=== PATIENT | female | born 1975 | race Caucasian/White ===

== ENCOUNTER 2017-06-29 16:59 | Emergency (ER) | payer OTHER ==
[~2017-06-29] VITALS: Ht 165.1 cm; Wt 59.0 kg
[~2017-06-29 16:59] MED LIST: SERO300T2 PO
[2017-06-29 17:26] VITALS: BP 133/87; PULSE 95; RESP 18; TEMP 99.3; O2SAT 97
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
[2017-06-29] MEDS ORDERED: OLANZapine 10 MG TAB PO ONE (18:15)
[2017-06-29 18:30] LABS: ALBUMIN 4.9 GM/DL (3.4-5.0); ALT (GPT) 39 U/L (10-53); AST (GOT) 47 U/L (15-37); BICARBONATE 20.8 MEQ/L (21.0-32.0); BLOOD UREA NITROGEN 17 MG/DL (7-18); CALCIUM 9.2 MG/DL (8.5-10.1); CHLORIDE 105 MEQ/L (98-107); CREATININE 0.96 MG/DL (0.50-1.00); GLOMERULAR FILTRATION RATE 64 ML/MIN (>89); GLUCOSE,RANDOM 81 MG/DL (74-106); SODIUM (NA) 136 MEQ/L (136-145)
[2017-06-29 18:40] LABS: ALKALINE PHOSPHATASE 70 U/L (45-117); TOTAL BILIRUBIN ADULT 0.7 MG/DL (0.2-1.0); TOTAL PROTEIN 8.1 GM/DL (6.4-8.2)
[2017-06-29] MEDS ORDERED: OLANZapine IM 10 MG VIAL IM ONE (18:45)
[2017-06-29] MEDS ORDERED: LORazepam 2 MG/ML VIAL IM ONE (18:45)
[2017-06-29 19:37] VITALS: BP 118/68; PULSE 84; RESP 20; TEMP 98.3; O2SAT 97
[2017-06-29 19:46] LABS: AUTOMATED NEUTROPHIL # 8.8 TH/MM3 (1.8-7.7); BASOPHIL % 0.2 % (0.0-2.0); EOSINOPHIL % 0.3 % (0.0-4.0); HEMATOCRIT 42.6 % (35.0-46.0); HEMOGLOBIN 14.6 GM/DL (11.6-15.3); LYMPH % 19.5 % (9.0-44.0); LYMPHOCYTE # 2.3 TH/MM3 (1.0-4.8); MEAN CELL VOLUME 94.8 FL (80.0-100.0); MEAN CORPUSCULAR HEMOGLOBIN 32.6 PG (27.0-34.0); MEAN CORPUSCULAR HGB CONC 34.4 % (32.0-36.0); MEAN PLATELET VOLUME 8.1 FL (7.0-11.0); MONO % 6.9 % (0.0-8.0); MONOCYTE # 0.8 TH/MM3 (0-0.9); NEUT % 73.1 % (16.0-70.0); PLATELET COUNT 403 TH/MM3 (150-450); RED BLOOD COUNT 4.49 MIL/MM3 (4.00-5.30); RED CELL DISTRIBUTION WIDTH 12.9 % (11.6-17.2); WHITE BLOOD COUNT 11.9 TH/MM3 (4.0-11.0)
[2017-06-29 23:46] VITALS: BP 95/59; PULSE 74; RESP 14; O2SAT 99
[2017-06-30 03:20] VITALS: BP 105/52; PULSE 77; RESP 20; O2SAT 97
[2017-06-30 07:38] VITALS: BP 102/55; PULSE 76; RESP 14; TEMP 98.7; O2SAT 98
--- NOTE | 2017-06-30 11:05 | PD ---
Data Data Last Documented VS Vital Signs Date Time Temp Pulse Resp B/P (MAP) Pulse Ox O2 Delivery O2 Flow Rate FiO2 06/30/17 07:38 98.7 76 14 102/55 (71) 98 Room Air Orders Orders Complete Blood Count With Diff (06/29/17 18:03) Comprehensive Metabolic Panel (06/29/17 18:03) Thyroid Stimulating Hormone (06/29/17 18:03) Psych Screen (06/29/17 18:03) Drug Screen, Random Urine (06/29/17 18:03) Alcohol (Ethanol) (06/29/17 18:03) Olanzapine (Zyprexa) (06/29/17 18:15) Olanzapine Inj (Zyprexa Inj) (06/29/17 18:45) Lorazepam Inj (Ativan Inj) (06/29/17 18:45) Restraints Violent (06/29/17 18:43) Diet Regular Basic (06/30/17 Breakfast) Ed Discharge Order (06/30/17 11:03) Labs Laboratory Tests Test 06/29/17 17:40 06/29/17 18:39 White Blood Count 11.9 TH/MM3 Red Blood Count 4.49 MIL/MM3 Hemoglobin 14.6 GM/DL Hematocrit 42.6 % Mean Corpuscular Volume 94.8 FL Mean Corpuscular Hemoglobin 32.6 PG Mean Corpuscular Hemoglobin Concent 34.4 % Red Cell Distribution Width 12.9 % Platelet Count 403 TH/MM3 Mean Platelet Volume 8.1 FL Neutrophils (%) (Auto) 73.1 % Lymphocytes (%) (Auto) 19.5 % Monocytes (%) (Auto) 6.9 % Eosinophils (%) (Auto) 0.3 % Basophils (%) (Auto) 0.2 % Neutrophils # (Auto) 8.8 TH/MM3 Lymphocytes # (Auto) 2.3 TH/MM3 Monocytes # (Auto) 0.8 TH/MM3 Eosinophils # (Auto) 0.0 TH/MM3 Basophils # (Auto) 0.0 TH/MM3 CBC Comment DIFF FINAL Differential Comment Blood Urea Nitrogen 17 MG/DL Creatinine 0.96 MG/DL Random Glucose 81 MG/DL Total Protein 8.1 GM/DL Albumin 4.9 GM/DL Calcium Level 9.2 MG/DL Alkaline Phosphatase 70 U/L Aspartate Amino Transf (AST/SGOT) 47 U/L Alanine Aminotransferase (ALT/SGPT) 39 U/L Total Bilirubin 0.7 MG/DL Sodium Level 136 MEQ/L Potassium Level 3.5 MEQ/L Chloride Level 105 MEQ/L Carbon Dioxide Level 20.8 MEQ/L Anion Gap 10 MEQ/L Estimat Glomerular Filtration Rate 64 ML/MIN Thyroid Stimulating Hormone 3rd Gen 0.530 uIU/ML Ethyl Alcohol Level LESS THAN 3 MG/DL Urine Opiates Screen NEG Urine Barbiturates Screen NEG Urine Amphetamines Screen NEG Urine Benzodiazepines Screen NEG Urine Cocaine Screen NEG Urine Cannabinoids Screen POS MDM Supervised Visit with [facility]: No Narrative Course Patient medically cleared, seen by Dr. Austin psychiatry, recommend outpatient follow-up. Diagnosis Primary Impression: Abnormal behavior Referrals: [facility] Instructions: General Instructions Med/Other Pt SpecificInfo: No Change to Meds Scripts No Active Prescriptions or Reported Meds Disposition: 01 DISCHARGE HOME Condition: Stable Rivera Jacinto MD Jun 30, 2017 11:05
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
== END 2017-06-30 11:20 | disposition home or self-care (01) ==
LOC: NEPD 16:59
DX: R46.89 Other symptoms and signs involving appearance and behavior (principal); F12.90 Cannabis use, unspecified, uncomplicated; F17.200 Nicotine dependence, unspecified, uncomplicated
CPT/HCPCS: 80053; 80307; 84443; 85025; 96372; 99285; J2060